=== PATIENT | male | born 1995 | race Hispanic/Latino ===

== ENCOUNTER 2020-02-22 20:08 | Emergency (ER) | payer SELFPAY ==
[~2020-02-22] VITALS: Ht 172.7 cm; Wt 63.5 kg
[2020-02-22] MEDS ORDERED: AUGMENTIN 500-1 EACH PO (21:02)
--- NOTE | 2020-02-22 21:30 | Diagnostic Imaging Report ---
X-ray right knee 3 views HISTORY: Pain. COMPARISON: None available. FINDINGS: Bones: No acute displaced fracture. Joints: The joint spaces are well-maintained. Moderate joint effusion. Soft tissues: Prepatellar soft tissue swelling. Ill-defined distal quadriceps myotendinous junction with surrounding soft tissue swelling. IMPRESSION: No acute radiographic osseous abnormality. Prepatellar soft tissue swelling. Moderate nonspecific joint effusion, possibly hemarthrosis. Signed by: Karlos Chery DO on 02/22/2020 9:26 PM
== END 2020-02-22 21:53 | disposition home or self-care (01) ==
LOC: FSED 20:08
DX: S81.031A Puncture wound without foreign body, right knee, initial encounter (principal); W29.4XXA Contact with nail gun, initial encounter; Y92.008 Other place in unspecified non-institutional (private) residence as the place of occurrence of the external cause
CPT/HCPCS: 99283